=== PATIENT | female | born 1960 | race Caucasian/White ===

== ENCOUNTER 2023-02-25 13:35 | Emergency (ER) | payer OTHER ==
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
[2023-02-25] MEDS ORDERED: KETOROLAC 30 MG/ML VIAL IM STA (14:15)
--- NOTE | 2023-02-25 14:39 | XRAY Report ---
PROCEDURE: Knee 2 View RT INDICATIONS: fall onto knee; pain anteriorly. TECHNIQUE: 2 views of the right knee(s) were acquired. COMPARISON: None. FINDINGS: Bones: Acute slightly comminuted fractures involving inferior aspect of patella is seen with inferio r displacement of fractured patella fragment and up to 1.5 cm diastases at fracture site. No suspicio us bony lesions. Mild tricompartmental osteoarthritis is seen. Soft tissues: Marked soft tissue swelling along anterior aspect of patella and patella tendon is seen . Small to moderate joint effusion is also likely present. No suspicious soft tissue calcifications o r masses. IMPRESSION: Acute slightly comminuted and displaced inferior patella fracture with marked anterior soft tissue sw elling. Reviewed by: Trae Tong MD on 02/25/2023 2:38 PM PDT Approved by: Trae Tong MD on 02/25/2023 2:38 PM PDT Station ID: [id number]
[2023-02-25 15:37] VITALS: BP 130/72
== END 2023-02-25 15:33 | disposition home or self-care (01) ==
LOC: ED 13:35
DX: S82.031A Displaced transverse fracture of right patella, initial encounter for closed fracture (principal); V18.0XXA Pedal cycle driver injured in noncollision transport accident in nontraffic accident, initial encounter; Y93.55 Activity, bike riding; Y92.830 Public park as the place of occurrence of the external cause
CPT/HCPCS: 20610; 99284